=== PATIENT | male | born 1995 | race Caucasian/White ===

== ENCOUNTER 2016-09-26 14:08 | Emergency (ER) | payer OTHER ==
--- NOTE | 2016-09-26 14:50 | EDPHY ---
H & P Smoking Status: Never smoked Time Seen by Provider: 09/26/16 14:37 HPI/ROS: CHIEF COMPLAINT: Headache HISTORY OF PRESENT ILLNESS: 21-year-old male presents to the emergency department by private vehicle complaining of headache. The patient states that 8 :00 p.m. yesterday he was at the gym lifting weights and developed sudden onset of a thunderclap type headache to the right posterior aspect of his head. He described it like "my head was just split open." He states that he stopped lifting weights went home around 9:00 p.m. he took some ibuprofen. He did not seek medical attention. By the time he went to bed headache was much more mild. When he woke up this morning he also forgot about pain but still continues to have a dull ache in the right posterior aspect of his head. No visual changes. No dizziness. No nausea or vomiting. No neck pain. The patient is an avid weightlifter and has never had this happen to him in the past. No history of previous headaches. No reported trauma. REVIEW OF SYSTEMS: Constitutional: No fever, no chills. Eyes: No double or blurry vision. ENT: No sore throat. Respiratory: No cough, no shortness of breath. Cardiac: No chest pain. Gastrointestinal: No abdominal pain, vomiting or diarrhea. Genitourinary: No dysuria. Musculoskeletal: No neck or back pain. Skin: No rashes. Neurological: Headache. (Rosi Puri) Past Medical/Surgical History: Negative (Rosi Puri) Social History: Single and works for [employer] (Rosi Puri) Physical Exam: General Appearance: Alert, no distress. Blood pressure 140/89 Eyes: Pupils equal and round. Extraocular motions are all intact. ENT: Mouth: Mucous membranes moist. Respiratory: No wheezing, rhonchi, or rales, lungs are clear to auscultation. Cardiovascular: Regular rate and rhythm. Gastrointestinal: Abdomen is soft and nontender, no masses, no rebound or guarding, bowel sounds normal. Neurological: Alert and oriented x 3, cranial nerves II through XII grossly intact Skin: Warm and dry, no rashes. Musculoskeletal: Nontender to palpate along the cervical, thoracic or lumbar spine. Neck is supple. Extremities: Full range of motion and no peripheral edema. Psychiatric: Patient is oriented X 3, there is no agitation. (Rosi Puri) Constitutional: Initial Vital Signs Temperature (C) 36.6 C 09/26/16 14:18 Heart Rate 72 09/26/16 14:18 Respiratory Rate 18 09/26/16 14:18 Blood Pressure 140/89 H 09/26/16 14:18 O2 Sat (%) 97 09/26/16 14:18 O2 Delivery Mode Room Air Allergies/Adverse Reactions: No Known Allergies Allergy (Unverified 09/26/16 14:17) Home Medications: Medication Instructions Recorded NK [No Known Home Meds] 09/26/16 Medical Decision Making ED Course/Re-evaluation: 21-year-old male presents to the emergency department after sudden onset of severe headache while lifting weights last evening. The pain has greatly improved although not completely resolved. Case was discussed with Dr. Chioma Alba, secondary supervising physician, who agreed with CT imaging of the brain both without and with contrast. This is pending. (Rosi Puri) Differential Diagnosis: Headache including but not limited to subarachnoid hemorrhage, migraine headache , tension headache and infectious causes such as meningitis, pharyngitis and sinusitis. (Rosi Puri) Other Provider: The patient was signed out to me by BOB Mcbride, pending CT imaging. CT head and CTA head were obtained. Results were phoned to me by the radiologist. Imaging is negative. See the full radiology report in the imaging section. Patient was seen and examined by myself at 6:00 p.m.. He is feeling well, has no headache currently. We discussed the CT results. We discussed the limitations at this point. I specifically discussed the limitations of a CT scan and offered patient a LP to evaluate for evidence of subdural hemorrhage. Patient would prefer no further evaluation. Feels well now. Patient is comfortable being discharged with no further evaluation. He understands reasons to return to the emergency department. (Chioma Alba) Departure - Departure Disposition: Home, Routine, Self-Care Clinical Impression: Headache Condition: Good Instructions: Acute Headache (ED) Additional Instructions: Okay to use Tylenol or ibuprofen for any residual discomfort. Return to the emergency department or seek care urgently if you have recurrent headache, fevers, numbness or tingling in arms or legs, nausea, vomiting, dizziness, or other concerns. Referrals: NONE *PRIMARY CARE P,. [Primary Care Provider] - As per Instructions Marty Glass, [Doctor of Osteopathy] - As per Instructions
[2016-09-26] MEDS ORDERED: IOPAMIDOL (ISOVUE 370) 100 ML BTL IV ONE (16:25)
[2016-09-26 18:14] VITALS: BP 155/79; PULSE 61; RESP 16; TEMP 98.1; O2SAT 96
== END 2016-09-26 18:14 | disposition home or self-care (01) ==
DX: R51 Headache (principal)
CPT/HCPCS: 82947-QW; Q9967